=== PATIENT | male | born 1975 | race Caucasian/White ===

== ENCOUNTER 2017-05-09 21:04 | Inpatient (IN) ==
[2017-05-09] MEDS ORDERED: Ibuprofen 600 MG TABLET PO ONE (21:18)
--- NOTE | 2017-05-09 21:26 | Emergency Department Note ---
Disposition Clinical Impression: Chest wall pain Community acquired pneumonia Qualifiers: Laterality: right Lung location: lower lobe of lung Qualified Code(s): J18.1 - Lobar pneumonia, unspecified organism Sepsis Qualifiers: Sepsis type: sepsis due to unspecified organism Qualified Code(s): A41.9 - Sepsis, unspecified organism Disposition: Admitted As Inpatient Condition: Good Time of Disposition: 22:02 General Adult HPI - General Chief complaint: ED Chest Pain Stated complaint: Back/Shoulder/CP Time Seen by Provider: 05/09/17 21:11 Source: patient, family () Mode of arrival: ambulatory Limitations: no limitations Nursing Notes Reviewed: Yes Vital Signs Reviewed: Yes - History of Present Illness HPI Narrative: 42-year-old male former smoker presents to the ED with muscle aches, congestion and right chest pain. Patient states over the past week he has had a cough rhinorrhea congestion as well as tactile fever. He thought he was getting over it but 2 days ago he felt exhausted after work. He slept in a sitting opposition on the couch and woke up with some neck discomfort and shoulder discomfort. Since then over the past 48 hours it seems to have migrated to his right chest wall with pinpoint tenderness to one of the ribs. He denies any injury. It does hurt to take a big breath in. No history of cardiac ischemic disease. He reports his whole body also hurts his legs are sore. 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 No other complaints such as abdominal pain, nausea vomiting. Normal appetite. He has not taken anything other than icy hot to the area with some minimal relief. At this time I do not suspect this is cardiac in nature. He likely has a viral illness possibly influenza but given that he is 48 hours pass initial onset I discussed the futility of testing for it. They are in agreement with this plan. We will give him a dose of Tylenol and ibuprofen for the discomfort. Check a chest x- ray given his symptoms of congestion to make sure this is not pneumonia. Pain Scale: 10 - Related Data Home Medications Medication Instructions Recorded Confirmed Albuterol Inhaler 1 Q4HR PRN 04/24/15 Omeprazole [PriLOSEC] 20 mg PO DAILY 04/24/15 05/10/17 Allergies Allergy/AdvReac Type Severity Reaction Status Date / Time No Known Allergies Allergy Verified 04/24/15 12:37 All systems ED: reviewed and negative except as stated. Review of Systems: As Per HPI Constitutional: Reports: fever (tactile). Denies: chills ENT ED: Reports: congestion. Denies: throat pain Cardiovascular: Reports: chest pain. Denies: dyspnea on exertion Respiratory: Reports: cough, dyspnea Gastrointestinal: Denies: abdominal pain, nausea, vomiting Genitourinary: Denies: urgency, dysuria Musculoskeletal: Reports: neck pain, myalgia. Denies: back pain Integumentary: Denies: rash, abrasion Neurological: Denies: headache Past Medical History - Past Medical History Attestation: Yes The following information was validated with the patient. Source: patient Medical history: Reports: asthma, COPD Psychiatric history: Reports: no psych history - Social History Smoking Status: Former smoker Smokeless Tobacco Status: No Alcohol use: Reports: none Drug use: Reports: none Physical Exam - General Limitations: no limitations General appearance: alert, in no apparent distress - Head Head exam: atraumatic, normocephalic, normal inspection - Eye Eye exam: Present: normal appearance, PERRL, EOMI - ENT ENT exam: normal exam, normal oropharynx, mucous membranes moist - Neck Neck exam: Present: normal inspection, full ROM, trachea midline. Absent: tenderness, meningismus - Expanded Neck Exam Neck exam focused ED: Absent: midline tenderness - Chest Chest inspection: Present: normal inspection, symmetric chest wall rise, tenderness (right lateral chest wall, 7-8th rib) - Expanded Chest Exam Trauma: Absent: crepitus, abrasion, ecchymosis - Respiratory Respiratory exam: Present: normal lung sounds bilaterally. Absent: respiratory distress, wheezes, accessory muscle use - Cardiovascular Cardiovascular exam: Present: regular rate, normal rhythm, normal heart sounds - Abdominal Exam Abdominal exam: Present: soft, Non-Tender, normal bowel sounds. Absent: tenderness, distention, guarding, rebound, rigidity - Extremities Exam Extremities exam: Present: normal inspection, full ROM, normal capillary refill. Absent: tenderness, pedal edema, calf tenderness - Back Exam Back exam: Present: normal inspection, full ROM. Absent: tenderness - Neurological Exam Neurological exam: Present: alert, oriented X3, normal gait - Psychiatric Psychiatric exam: Present: normal affect, normal mood - Skin Skin exam: Present: warm, dry, intact, normal color. Absent: rash, cyanosis, diaphoresis Course - Reevaluation(s) Reevaluation #1: Patient remains mildly tachycardic. Afebrile on initial arrival. Review of his chest x-ray shows concern for multifocal pneumonia. This is consistent with his story. At this time will check a influenza as this could signify increase risk of complications. Will check some basic labs as well. He will also receive IV fluid hydration. Patient is in agreement with this plan. Based on the reassessment in laboratory values will determine if he will require admission versus outpatient therapy. He is not septic appearing. Reevaluation #2: Patient has a large leukocytosis 20.6. On room air his oxygen saturation is now 93%. His heart rate remains in the 90s. He has received fluids. He continues to splint due to the pain and discomfort in his right chest. I suspect he will fail outpatient therapy as he continues to have discomfort in coughing and clearing things up. He remains hemodynamically stable. Not hypotensive. Does not required aggressive fluid resuscitation with 30 mL per kilogram. Lactate has been ordered with blood cultures. He is in no respiratory distress and non-septic appearing but given obvious source and 2 of 4 SIRS criteria, additional labs ordered. Patient is in agreement with admission. Impression is chest wall pain and community acquired pneumonia. Reevaluation #3: Lactate 0.8 - Consultations Consultation #1: Spoke with on-call hospitalist shalom Garcia to admit for CAP. No further orders at this time Time: 00:03 Vital Signs Temperature 98.8 F 05/09/17 21:07 Pulse Rate 109 05/09/17 21:07 Respiratory Rate 16 05/09/17 21:07 Blood Pressure 143/86 05/09/17 21:07 O2 Sat by Pulse Oximetry 95 05/09/17 21:07 Temperature 97.4 F L 05/10/17 01:28 Pulse Rate 90 05/10/17 01:28 Respiratory Rate 16 05/10/17 01:28 Blood Pressure 110/73 05/10/17 01:30 O2 Sat by Pulse Oximetry 96 05/10/17 01:28 Oxygen Delivery Oxygen Delivery Room Air Medical Decision Making - MDM Narrative Medical decision making narrative: Patient was discussed with my attending physician who agrees with ED management and final disposition. They independently evaluated the patient. Please refer to their attestation to this encounter for additional information. This note was generated by [employer] voice recognition software and as a result grammatical or spelling errors may occur using this program. - Medical Records Medical records reviewed: Yes I reviewed the patient's medical records. - Lab Data Lab results reviewed: Yes I reviewed the patient's lab results. Result diagrams: 05/09/17 22:44 05/09/17 22:44 Lab Results 05/09/17 05/09/17 Range/Units 22:44 22:44 WBC 20.6 H (4.3-11.1) K/mcL RBC 5.08 (4.19-5.50) M/mcL Hgb 15.0 (12.9-16.9) g/dL Hct 44.3 (37.5-50.1) % MCV 87.2 (83.0-100.0) fL MCH 29.5 (28.0-33.3) pg MCHC 33.9 (31.6-35.5) g/dL RDW 12.6 (11.5-14.5) % Plt Count 369 (140-400) K/mcL MPV 9.9 (9.4-12.4) fL Immature Gran % 0.4 (0-4) % Seg Neutrophils % 69.4 % Lymphocytes % 14.9 % Monocytes % 14.0 % Eosinophils % 0.9 % Basophils % 0.4 % Neutrophils # 14.3 H (1.6-8.9) K/mcL Lymphocytes # 3.1 (0.6-4.6) K/mcL Monocytes # 2.9 H (0.0-1.3) K/mcL Eosinophils # 0.2 (0.0-0.6) K/mcL Basophils # 0.1 (0.0-0.2) K/mcL Immature Plt Fraction 3.6 (1.1-6.1) % Sodium 134 L (136-145) mEq/L Potassium 3.8 (3.5-5.1) mEq/L Chloride 103 (98-107) mEq/L Carbon Dioxide 26 (23-29) mEq/L BUN 13 (6-20) mg/dL Creatinine 0.91 (0.70-1.30) mg/dL Est GFR ( Amer) > 60 (> 60) Est GFR (Non-Af Amer) > 60 (> 60) BUN/Creatinine Ratio 14 (6-26) Glucose 107 H (70-105) mg/dL Calculated Osmolality 279 L (280-300) Calcium 9.3 (8.6-10.3) mg/dL - Radiology Data Radiology results reviewed: Yes I reviewed the patient's radiology results. Chest X-Ray 05/09/17 21:21 IMPRESSION: Mild bibasilar airspace disease, likely multifocal pneumonia. Atelectasis is not excluded. D/ / Pb Aquino MD / Pb Aquino MD Interpreting Provider: Pb Aquino MD - EKG Data EKG #1 EKG attestation: Yes I reviewed and interpreted this EKG. EKG results narrative: EKG performed 2135 sinus tachycardia 10 4 bpm, good R wave progression, no ST elevations or depression, no T wave inversion, intervals within normal limits. Compared to all prior EKG 02/26/2011 shows similar consistent findings. No acute ischemic changes. Attestation Statement - Attestation Attestation: I, Juan Diego Wiley MD, personally evaluated this patient and discussed their management with the resident physician. I reviewed the resident's note and agree with the documented findings, medical decision making, and plan of care. 42-year-old male presents to the emergency department with a complaint of very localized right anterolateral chest wall pain for 2 days prior to arrival. Patient reports that he is actually been sick for 2-3 weeks. He initially had fever and cough and congestion. Some shortness of breath. Productive cough with yellow and brownish colored sputum. No hemoptysis. Symptoms seem to be getting better and then about 4 days ago he awoke from a nap and felt that he had slept wrong. He had pain in the right side of his neck and the right trapezius muscle. This pain lasted about 2 days and then seemed to resolve but since that pain resolved he has had this localized right anterolateral chest wall pain which is tender to palpation. He complains of shortness of breath which is really more like it hurts to breathe and he cannot get a deep breath. Patient does have a history of COPD and uses an inhaler as needed. Otherwise he is on no medications and does not use home oxygen. On examination patient is a well-developed well-nourished well-appearing male in no acute distress. He is alert and oriented 3. There is no cyanosis or diaphoresis. There is very localized tenderness to palpation over the chest wall over the right mid anterolateral chest. No bony crepitus or subcutaneous emphysema. Breath sounds are decreased but equal bilaterally. There are a few faint scattered expiratory wheezes. Heart regular with a mild tachycardia. Abdomen soft and nontender with normal bowel sounds. No pedal edema. Labs reviewed. WBC 20. Chest x-ray shows mild bibasilar airspace disease, likely multifocal pneumonia. Atelectasis is not excluded. EKG shows a sinus tachycardia with a rate of 104, no acute ischemic changes. The hospitalist, Dr. Nguyen, was consulted and accepted the admission the patient.
[2017-05-09] MEDS ORDERED: 0.9 % Sodium Chloride 1,000 ML IVC ONE (22:30)
[2017-05-09 22:51] LABS: Basophils # 0.1 K/mcL (0.0-0.2); Basophils % 0.4 %; Eosinophils # 0.2 K/mcL (0.0-0.6); Eosinophils % 0.9 %; Hematocrit 44.3 % (37.5-50.1); Immature Granulocytes % 0.4 % (0-4); Immature Platelets 3.6 % (1.1-6.1); Lymphocytes # 3.1 K/mcL (0.6-4.6); Lymphocytes % 14.9 %; Mean Corpuscular HGB Conc 33.9 g/dL (31.6-35.5); Mean Corpuscular Hemoglobin 29.5 pg (28.0-33.3); Mean Corpuscular Volume 87.2 fL (83.0-100.0); Mean Platelet Volume 9.9 fL (9.4-12.4); Monocytes # 2.9 K/mcL (0.0-1.3); Neutrophils # 14.3 K/mcL (1.6-8.9); Platelet Count 369 K/mcL (140-400); Red Blood Count 5.08 M/mcL (4.19-5.50); Red Cell Distribution Width 12.6 % (11.5-14.5); Segmented Neutrophils % 69.4 %
[2017-05-09 23:03] LABS: BUN/Creatinine Ratio 14 (6-26); Blood Urea Nitrogen 13 mg/dL (6-20); Calcium 9.3 mg/dL (8.6-10.3); Carbon Dioxide 26 mEq/L (23-29); Chloride 103 mEq/L (98-107); Glucose 107 mg/dL (70-105); Osmolality,Calculated 279 (280-300); Potassium 3.8 mEq/L (3.5-5.1); Sodium 134 mEq/L (136-145); eGFR For African Americans > 60 (> 60); eGFR For Non-African Americans > 60 (> 60)
[2017-05-09] MEDS ORDERED: Azithromycin 500 MG in D5% in Water 250 ML IVPB ONE (23:44)
[2017-05-09] MEDS ORDERED: cefTRIAXone 2,000 MG in Water for inj. (sterile) 20 ML IVP ONE (23:44)
[2017-05-10] MEDS ORDERED: *HR* Morphine 2 MG/ML SYRINGE IVP ONE (00:04)
[2017-05-10] MEDS ORDERED: *HR* Morphine 2 MG/ML SYRINGE IVP PRN (00:17)
[2017-05-10] MEDS ORDERED: Acetaminophen 325 MG TABLET PO PRN (00:17)
[2017-05-10] MEDS ORDERED: methylPREDNISolone 125 MG/2 ML VIAL IVP ONE (00:17)
[2017-05-10] MEDS ORDERED: Ondansetron 4 MG/2 ML VIAL IVP PRN (00:18)
[2017-05-10] MEDS ORDERED: Naloxone 0.4 MG/ML INJ IVP PRN (00:18)
--- NOTE | 2017-05-10 00:24 | Internal Med History&Physical ---
Date of Encounter: 05/10/17 Time of Encounter: 00:22 Assessment and Plan (1) Sepsis Current visit: Yes Status: Acute Hypoxic respiratory failure secondary to acute COPD exacerbation from sepsis due to acute community-acquired pneumonia, unknown agent Continue oxygen therapy, Rocephin and azithromycin, start Solu-Medrol Blood cultures Sputum cultures Omeprazole for GI prophylaxis and subcutaneous heparin for DVT prophylaxis. The patient will be admitted as inpatient, expected to stay more than 2 midnights. Full code. Time spent on this admission 40 minutes, high risk due to sepsis Qualifiers: Sepsis type: sepsis due to unspecified organism Qualified Code(s): A41.9 - Sepsis, unspecified organism (2) Community acquired pneumonia Current visit: Yes Status: Acute Qualifiers: Laterality: right Lung location: lower lobe of lung Qualified Code(s): J18.1 - Lobar pneumonia, unspecified organism (3) Pleuritic pain Current visit: Yes Status: Acute (4) Leukocytosis Current visit: Yes Status: Acute Qualifiers: Leukocytosis type: unspecified Qualified Code(s): D72.829 - Elevated white blood cell count, unspecified (5) Hypoxia Current visit: Yes Status: Acute (6) Hyponatremia Current visit: Yes Status: Acute Nonspecific (7) Acute exacerbation of COPD with asthma Current visit: Yes Status: Acute [facility] [place] - H&P: HPI Chief complaint: Shortness of breath Admitted From: Emergency Dept History of present illness: Mr. Silverio is a 42 year old male with a past medical history of COPD, asthma , remote history of tobacco use, came to emergency room complaining of severe difficulty breathing that started a week ago and got worse in the past 2 days. He has been bringing up yellowish phlegm. Chest x-ray shows multifocal pneumonia mainly in the right lower lobe. The patient developed right thorax pleuritic pain. White blood cell count is 20.6 heart rate 109, influenza negative. His son has been having an upper respiratory infection. Complains of pain while coughing 9 out of 10 in intensity. Non-quantified fevers at home. Complaining of night sweating, saturating in the low 90s. Blood pressure 146/86. Very dehydrated Past Med Surg Social Fam HX - Past Medical History Medical history: asthma, COPD (Not oxygen dependent, remote history of tobacco use) Psychiatric history: no psych history - Past Surgical History Surgical History: non-contributory (Ear surgery) - Social History Smoking Status: Former smoker Packs per day: Quit 8 years ago Smokeless Tobacco Status: No Alcohol use: none Drug use: none - Additional Family History Additional family history: Mother with cervical cancer Internal Medicine - H&P: Meds Albuterol Inhaler 04/24/15 [History] Ciprofloxacin OPTH Soln [Ciloxan OPTH Soln] 2 drop LEFT EYE Q4HR #1 bottle 04/24 [Rx] Omeprazole [PriLOSEC] 20 mg PO DAILY 04/24/15 [History] 3 Allergy/AdvReac Type Severity Reaction Status Date / Time No Known Allergies Allergy Verified 04/24/15 12:37 All Systems PM: A 10-system review of systems was performed and is negative for pertinent findings except as documented above in the HPI. Review of systems: Short of breath and chest pain, other systems out of the 10 review were negative - Constitutional Vitals: Temp Pulse Resp BP Pulse Ox 98.8 F 91 18 122/65 94 05/09/17 21:07 05/09/17 23:47 05/09/17 23:47 05/09/17 23:47 05/09/17 23:47 General appearance: Present: A&O X 3 - Head Head exam: Present: atraumatic, normocephalic - Eye Eye exam: Present: PERRL, conjuntiva pink, sclera anicteric Pupils: Present: PERRL - Neck Neck exam general surgery: Present: supple, trachea midline. Absent: lymphadenopathy - Respiratory Respiratory exam: Present: CTAB, rales, wheezes (Crackles and mild wheezing mainly in the right base). Absent: accessory muscle use, rhonchi - Cardiovascular Cardiovascular exam: Present: RRR, +S1, +S2. Absent: diastolic murmur, gallop, rubs, systolic murmur - GI/Abdominal GI/Abdominal exam: Present: normal bowel sounds, soft, no peritoneal signs. Absent: distended, tenderness - Extremities Exam Extremities exam: Present: warm, radial pulses palpable and symmetrical. Absent : calf tenderness, cyanotic, pedal edema - Neurological Exam Neurological exam: Present: CN II-XII intact, oriented X3, no focal deficits. Absent: pronater drift, facial droop, speech deficit - Skin Skin exam: Present: dry, intact Internal Med - H&P Results - Labs CBC & Chem 7: 05/09/17 22:44 05/09/17 22:44 Labs: Short CBC 05/09/17 Range/Units 22:44 WBC 20.6 H (4.3-11.1) K/mcL Hgb 15.0 (12.9-16.9) g/dL Hct 44.3 (37.5-50.1) % Plt Count 369 (140-400) K/mcL Neutrophils # 14.3 H (1.6-8.9) K/mcL BMP 05/09/17 22:44 Sodium 134 L Potassium 3.8 Chloride 103 Carbon Dioxide 26 BUN 13 Creatinine 0.91 Glucose 107 H Calcium 9.3 - Impressions ITS Impressions Chest X-Ray 05/09/17 21:21 IMPRESSION: Mild bibasilar airspace disease, likely multifocal pneumonia. Atelectasis is not excluded. D/ / Pb Aquino MD / Pb Aquino MD Interpreting Provider: Pb Aquino MD
[2017-05-10] MEDS: *HR* Heparin 5,000 UNIT/ML VIAL SQ SCH ×4 (01:59→21:25)
[2017-05-10] MEDS: 0.9 % Sodium Chloride 1,000 ML IVC SCH ×2 (02:07→15:26)
[2017-05-10] MEDS: Ipratropium/Albuterol Neb 3 ML IH SCH ×5 (02:35→21:27)
[2017-05-10] MEDS: Ketorolac 30 MG/ML VIAL IVP PRN ×2 (02:36→14:30)
--- NOTE | 2017-05-10 09:18 | Electrocardiograph Report ---
[address] [address] Test Date: 2017-05-09 Pat Name: Aubrey Silverio Department: 104 Room: [facility] Gender: M [employer] Sales [employer]: : 1975 Requested By: Darin Verma Order Number: [id number] Reading MD: Leslie Prince Measurements Intervals [place] Rate: 104 P: 5 CO: 121 QRS: -25 QRSD: 101 T: -2 QT: 329 QTc: 389 Interpretive Statements SINUS TACHYCARDIA BORDERLINE LEFT AXIS DEVIATION [QRS AXIS < -20] ABNORMAL RHYTHM ECG Electronically Signed On 05-10-2017 9:17:11 EST by Leslie Prince
[2017-05-10] MEDS: MethylPREDNISolone 40 MG/ML VIAL IVP SCH ×2 (09:55→17:18)
[2017-05-10] MEDS: cefTRIAXone 1,000 MG in Water for inj. (sterile) 10 ML IVP SCH (09:56)
[2017-05-10] MEDS: Azithromycin 500 MG in D5% in Water 250 ML IVPB SCH (21:22)
[2017-05-11] MEDS: MethylPREDNISolone 40 MG/ML VIAL IVP SCH ×3 (00:31→16:54)
[2017-05-11] MEDS: Ipratropium/Albuterol Neb 3 ML IH SCH ×5 (04:42→23:50)
[2017-05-11 04:54] LABS: Hematocrit 41.9 % (37.5-50.1); Mean Corpuscular Volume 87.5 fL (83.0-100.0); Mean Platelet Volume 10.5 fL (9.4-12.4); Red Blood Count 4.79 M/mcL (4.19-5.50)
[2017-05-11 04:56] LABS: Hemoglobin 14.2 g/dL (12.9-16.9); Mean Corpuscular HGB Conc 33.9 g/dL (31.6-35.5); Mean Corpuscular Hemoglobin 29.6 pg (28.0-33.3); Platelet Count 378 K/mcL (140-400); Red Cell Distribution Width 12.4 % (11.5-14.5)
[2017-05-11 05:17] LABS: BUN/Creatinine Ratio 19 (6-26); Blood Urea Nitrogen 13 mg/dL (6-20); Calcium 9.2 mg/dL (8.6-10.3); Carbon Dioxide 23 mEq/L (23-29); Chloride 111 mEq/L (98-107); Glucose 132 mg/dL (70-105); Osmolality,Calculated 290 (280-300); Potassium 4.1 mEq/L (3.5-5.1); Sodium 139 mEq/L (136-145); eGFR For African Americans > 60 (> 60); eGFR For Non-African Americans > 60 (> 60)
[2017-05-11 06:03] LABS: Lymphocytes # 2.4 K/mcL (0.6-4.6); Monocytes # 0.6 K/mcL (0.0-1.3); Neutrophils # 26.9 K/mcL (1.6-8.9); Platelet Estimate Normal (Normal)
[2017-05-11] MEDS: *HR* Heparin 5,000 UNIT/ML VIAL SQ SCH ×3 (06:48→21:54)
[2017-05-11] MEDS: 0.9 % Sodium Chloride 1,000 ML IVC SCH ×2 (06:51→20:00)
[2017-05-11] MEDS: cefTRIAXone 1,000 MG in Water for inj. (sterile) 10 ML IVP SCH (09:07)
--- NOTE | 2017-05-11 17:12 | Internal Med Progress Note ---
Date of Encounter: 05/11/17 Time of Encounter: 13:00 - Assessment and plan (1) Sepsis Current Visit: Yes Status: Acute Assessment and plan: Improving clinically Still has elevated WBC will cont empirical abx Rocephin and Azithromycin cut back on steroids Qualifiers: Sepsis type: sepsis due to unspecified organism Qualified Code(s): A41.9 - Sepsis, unspecified organism (2) Community acquired pneumonia Current Visit: Yes Status: Acute Assessment and plan: mostly bacterial sputum gram staining - showed G+ve cocci and rods cont empirical abx will f/u on sputum cx Qualifiers: Laterality: right Lung location: lower lobe of lung Qualified Code(s): J18.1 - Lobar pneumonia, unspecified organism (3) Acute exacerbation of COPD with asthma Current Visit: Yes Status: Acute Assessment and plan: Improving started tapering down steroids cont duoneb off the O2 He is still high risk for septic shock and resp failure, need close monitoring. Recommend to stay in the hospital for another 24hrs. Pt finally agreed to stay another 24hrs. - Subjective Interval history: Mr. Silverio is a 42 year old male with a past medical history of COPD, asthma , remote history of tobacco use, came to emergency room complaining of severe difficulty breathing that started a week ago and got worse in the past 2 days. He has been bringing up yellowish phlegm. Chest x-ray shows multifocal pneumonia mainly in the right lower lobe. Pt was admitted in the hospital and started him on IV abx for his pneumonia. He stated he is feeling little better today and wants to go home. Denied any fever . chills. Cough + - Constitutional Vitals: Temp Pulse Resp BP Pulse Ox 97.5 F L 105 14 131/90 95 05/11/17 14:22 05/11/17 14:22 05/11/17 14:22 05/11/17 14:22 05/11/17 14:22 General appearance: Present: A&O X 3 - Head Head exam: Present: atraumatic, normal inspection - Neck Neck exam general surgery: Present: supple - Respiratory Respiratory exam: Present: decreased breath sounds, wheezes (moderate). Absent : rales, respiratory distress, rhonchi - Cardiovascular Cardiovascular exam: Present: RRR, +S1, +S2. Absent: tachycardia - GI/Abdominal GI/Abdominal exam: Present: normal bowel sounds, soft. Absent: rebound, rigid, tenderness - Extremities Exam Extremities exam: Absent: calf tenderness, pedal edema, tenderness - Back Exam Back exam: Absent: CVA tenderness (L), CVA tenderness (R) - Neurological Exam Neurological exam: Present: alert, oriented X3 - Psychiatric Psychiatric exam: Present: anxious Internal Medicine: Result - Labs CBC & Chem 7: 05/11/17 04:22 05/11/17 04:22 Labs: Short CBC 05/11/17 Range/Units 04:22 WBC 29.9 H (4.3-11.1) K/mcL Hgb 14.2 (12.9-16.9) g/dL Hct 41.9 (37.5-50.1) % Plt Count 378 (140-400) K/mcL Neutrophils # 26.9 H (1.6-8.9) K/mcL BMP 05/11/17 04:22 Sodium 139 Potassium 4.1 Chloride 111 H Carbon Dioxide 23 BUN 13 Creatinine 0.67 L Glucose 132 H Calcium 9.2 Consult Discharge Plan - Plan Referrals: NONE,PCP [Primary Care Provider] - Prescriptions: Levofloxacin [Levaquin] 750 mg PO DAILY #4 tablet predniSONE [PredniSONE] 40 mg PO DAILY #10 tablet
[2017-05-11] MEDS: Azithromycin 500 MG in D5% in Water 250 ML IVPB SCH (20:01)
[2017-05-11] MEDS: Ketorolac 30 MG/ML VIAL IVP PRN (20:01)
[2017-05-12] MEDS: Ipratropium/Albuterol Neb 3 ML IH SCH ×3 (03:46→11:38)
[2017-05-12] MEDS: *HR* Heparin 5,000 UNIT/ML VIAL SQ SCH (05:46)
[2017-05-12 06:09] LABS: Hematocrit 39.4 % (37.5-50.1); Immature Granulocytes % 0.6 % (0-4); Lymphocytes % 9.6 %; Mean Corpuscular Hemoglobin 28.9 pg (28.0-33.3); Mean Corpuscular Volume 87.6 fL (83.0-100.0); Mean Platelet Volume 10.6 fL (9.4-12.4); Platelet Count 404 K/mcL (140-400); Red Cell Distribution Width 12.7 % (11.5-14.5); Segmented Neutrophils % 82.7 %
[2017-05-12 06:10] LABS: Basophils % 0.1 %; Lymphocytes # 2.3 K/mcL (0.6-4.6); Monocytes # 1.7 K/mcL (0.0-1.3); Neutrophils # 19.8 K/mcL (1.6-8.9); Nucleated Red Blood Cells 0.1 /100 WBC (0)
[2017-05-12 06:56] VITALS: BP 122/83
[2017-05-12] MEDS: cefTRIAXone 1,000 MG in Water for inj. (sterile) 10 ML IVP SCH (08:45)
[2017-05-12] MEDS ORDERED: MethylPREDNISolone 40 MG/ML VIAL IVP SCH (09:00)
--- NOTE | 2017-05-12 09:28 | Discharge Summary ---
Date of Encounter: 05/12/17 Time of Encounter: 09:25 - Discharge Diagnosis (1) Sepsis Priority: Primary Status: Acute Qualifiers: Sepsis type: sepsis due to unspecified organism Qualified Code(s): A41.9 - Sepsis, unspecified organism (2) Community acquired pneumonia Priority: Primary Status: Acute Qualifiers: Laterality: right Lung location: lower lobe of lung Qualified Code(s): J18.1 - Lobar pneumonia, unspecified organism (3) Acute exacerbation of COPD with asthma Priority: Primary Status: Acute - Discharge Medications Prescriptions: Levofloxacin [Levaquin] 750 mg PO DAILY #4 tablet predniSONE [PredniSONE] 40 mg PO DAILY #10 tablet Home Medications: Omeprazole [PriLOSEC] 20 mg PO DAILY 04/24/15 [History] Albuterol Sulfate [Albuterol Inhaler] 2 puff IH Q4HR PRN inhaler 05/11/17 [Rx] Levofloxacin [Levaquin] 750 mg PO DAILY #4 tablet 05/11/17 [Rx] predniSONE [PredniSONE] 40 mg PO DAILY #10 tablet 05/11/17 [Rx] Allergies/Adverse Reactions: 3 Allergy/AdvReac Type Severity Reaction Status Date / Time No Known Allergies Allergy Verified 05/10/17 11:30 Date of admission: 05/10/17 00:18 Primary care physician: PCP NONE Consults: 05/10/17 01:40 Consult to Nutrition [CONS] Routine Comment: Consulting Provider: NUTRITION Reason for Dietary Consult: MST Score - Patient Status Disposition: Home, Self-Care Condition: Good - Discharge Instructions Follow Up With: NONE,PCP [Primary Care Provider] - Additional Instructions: Ok to go back to work on Wednesday05/17/16 Please f/u with PCP in 1-2 weeks - Diet and Activity Activity: increase activity as tolerated Diet: low salt diet Hospital course: Mr. Silverio is a 42 year old male with a past medical history of COPD, asthma , remote history of tobacco use, came to emergency room complaining of severe difficulty breathing that started a week ago and got worse in the past 2 days. He has been bringing up yellowish phlegm. Chest x-ray shows multifocal pneumonia mainly in the right lower lobe. Pt was admitted in the hospital and started him on IV abx for his pneumonia and placed him on IV steroids. His symptoms improved now, breathing comfortably on RA. His WBC still elevated probably reactive and steroid induced. Will sent him home today with PO abx and tapering dose of PO steroids. - Time Spent with Patient Total time spent providing and/or coordinating discharge services: - Constitutional Vitals: Temp Pulse Resp BP Pulse Ox 97.6 F 91 14 122/83 96 05/12/17 06:55 05/12/17 06:55 05/12/17 06:55 05/12/17 06:55 05/12/17 06:55 General appearance: Present: A&O X 3 - Head Head exam: Present: atraumatic, normal inspection - Neck Neck exam general surgery: Present: supple - Respiratory Respiratory exam: Present: decreased breath sounds. Absent: rales, respiratory distress, rhonchi, wheezes - Cardiovascular Cardiovascular exam: Present: RRR, +S1, +S2. Absent: tachycardia - GI/Abdominal GI/Abdominal exam: Present: normal bowel sounds, soft. Absent: rebound, rigid, tenderness - Extremities Exam Extremities exam: Absent: calf tenderness, pedal edema, tenderness - Back Exam Back exam: Absent: CVA tenderness (L), CVA tenderness (R) - Neurological Exam Neurological exam: Present: alert, oriented X3 - Psychiatric Psychiatric exam: Present: normal affect, normal mood
[2017-05-12] MEDS ORDERED: FLUARIX QUAD 2017-18 36MOS UP/PF 0.5 ML SYRINGE IM ONE (11:08)
== END 2017-05-12 11:41 | disposition home or self-care (01) | DRG 871 ==
LOC: EMEROO 21:04 → 3NENU 21:04 → 3ANU 05-10 12:46
PROVIDERS: ADMIT Internal Medicine; ATTEND Student in an Organized Health Care Education/Training Program